=== PATIENT | male | born 1940 | race Asian ===

== ENCOUNTER 2019-10-04 15:35 | Inpatient (IN) | payer MEDICARE, MEDICAID ==
[~2019-10-04] VITALS: Ht 162.6 cm; Wt 58.8 kg
[~2019-10-04 15:35] MED LIST: HTN MED PO; TRAM50TA4 PO
[2019-10-04] MEDS ORDERED: IOVERSOL 320 MG/ML 100 ML VIAL ONE (15:52)
[2019-10-04] MEDS ORDERED: SODIUM CHLORIDE 0.9% 100 ML ONE (15:52)
[2019-10-04] MEDS ORDERED: SODIUM CHLORIDE 0.9% 500 ML IV ONE (16:00)
[2019-10-04] MEDS ORDERED: AZITHROMYCIN 500 MG/NS 250 ML IV ONE (16:15)
[2019-10-04] MEDS ORDERED: ACETAMINOPHEN 1000 MG/ISO-OSM 100 ML IV ONE (16:15)
[2019-10-04] MEDS ORDERED: PIPERACILLIN/TAZO 3.375 GM/D5W 50 ML IV ONE (16:15)
[2019-10-04] MEDS ORDERED: VANCOMYCIN HCL 1 GM/D5% WATER 200 ML IV ONE (16:15)
[2019-10-04] MEDS ORDERED: SODIUM CHLORIDE 0.9% 1,000 ML IV ONE (16:30)
[2019-10-04 16:43] LABS: BASOPHILS % (AUTO) 0.1 % (0.0-2.0); EOSINOPHILS % (AUTO) 0.1 % (1.0-6.0); HEMATOCRIT 29.1 % (41-53); HEMOGLOBIN 9.3 g/dL (13.5-17.5); LYMPHOCYTES # (AUTO) 0.5 K/uL (1.0-4.8); LYMPHOCYTES % (AUTO) 3.2 % (22.0-44.0); MEAN CORPUSCULAR HEMOGLOBIN 28.5 pg (26.0-34.0); MEAN CORPUSCULAR HGB CONC 31.9 G/dL (31.0-37.0); MEAN CORPUSCULAR VOLUME 89 fL (80-100); MONOCYTES # (AUTO) 1.2 K/uL (0.1-1.0); MONOCYTES % (AUTO) 7.5 % (2.0-9.0); NEUTROPHILS # (AUTO) 14.6 K/uL (1.8-7.7); PLATELET COUNT (AUTO) 479 K/uL (150-450); PROTHROMBIN TIME 10.2 SEC (9.4-11.6); RED BLOOD CELL COUNT(AUTO) 3.26 MIL/uL (4.50-5.90); RED CELL DISTRIBUTION WIDTH 16.8 % (11.5-14.5)
[2019-10-04 16:46] LABS: NEUTROPHILS % (AUTO) 89.1 % (40.0-70.0)
[2019-10-04 16:49] LABS: TROPONIN I 0.07 ng/mL (0.00-0.05)
[2019-10-04 16:57] LABS: LACTIC ACID 2.5 mmol/L (0.4-2.0)
[2019-10-04 17:04] LABS: CARBON DIOXIDE 26 mmol/L (22-29); CHLORIDE 105 mmol/L (98-107); POTASSIUM 3.6 mmol/L (3.5-5.1); SODIUM SERUM 147 mmol/L (136-145)
[2019-10-04 17:05] LABS: ALANINE AMINOTRANSFERASE 96 U/L (12-78); ALBUMIN 2.8 g/dL (3.4-5.0); ALKALINE PHOSPHATASE 101 U/L (46-116); ANION GAP 16 mmol/L (8-16); ASPARTATE AMINOTRANSFERASE 96 U/L (15-37); B-TYPE NATRIURETIC PEPTIDE 112 pg/mL (0-100); BILIRUBIN,TOTAL 1.9 mg/dL (0.1-1.0); CALCIUM, TOTAL 8.6 mg/dL (8.8-10.5); CREATINE KINASE, TOTAL ONLY 281 U/L (39-308); GLOMERULAR FILTR. RATE CALC 35 mL/min (>60); GLUCOSE,RANDOM 145 mg/dL (70-110); TOTAL PROTEIN, SERUM 7.6 g/dL (6.4-8.2); UREA NITROGEN, BLOOD 113 mg/dL (7-18)
[2019-10-04] MEDS ORDERED: ONDANSETRON HCL 4 MG/2 ML VIAL IVP PRN (18:15)
[2019-10-04] MEDS ORDERED: ASPIRIN 600 MG RECTAL SUPPOSITORY PR ONE (18:15)
[2019-10-04] MEDS ORDERED: *CLINICAL-LEVOFLOXACIN IVPB DOSING CLINICAL ONE (18:15)
[2019-10-04] MEDS ORDERED: ACETAMINOPHEN 325 MG TABLET PO PRN (18:15)
[2019-10-04] MEDS: ATORVASTATIN CALCIUM 20 MG TABLET PO SCH (18:15)
[2019-10-04] MEDS ORDERED: HydrALAZINE HCL 20 MG/ML VIAL IVP PRN (18:15)
[2019-10-04] MEDS ORDERED: SODIUM CHLORIDE 0.45% 1,000 ML IV ONE (18:15)
[2019-10-04] MEDS ORDERED: BISACODYL 10 MG RECTAL RECTAL SUPPOSITORY PR PRN (18:15)
[2019-10-04] MEDS: ASPIRIN 325 MG TABLET PO SCH (18:15)
[2019-10-04] MEDS: PANTOPRAZOLE SODIUM 40 MG/VIAL IVP SCH (19:05)
[2019-10-04 19:19] LABS: AMPHET/METH SCREEN,URINE NEGATIVE (NEGATIVE); BARBITURATE SCREEN, URINE NEGATIVE (NEGATIVE); BENZODIAZEPINES SCREEN,URINE NEGATIVE (NEGATIVE); CANNABINOID SCREEN,URINE NEGATIVE (NEGATIVE); COCAINE SCREEN,URINE NEGATIVE (NEGATIVE); METHADONE SCREEN, URINE NEGATIVE (NEGATIVE); OPIATE SCREEN,URINE NEGATIVE (NEGATIVE)
[2019-10-04 19:20] LABS: APPEARANCE,URINE CLEAR (CLEAR); BILIRUBIN,URINE NEGATIVE (NEGATIVE); GLUCOSE, URINE (UA) NEGATIVE (NEGATIVE); KETONES,URINE NEGATIVE (NEGATIVE); LEUKOCYTE ESTERASE ,URINE NEGATIVE (NEGATIVE); NITRATE,URINE NEGATIVE (NEGATIVE); OCCULT BLOOD,URINE TRACE (NEGATIVE); PROTEIN,URINE NEGATIVE (NEGATIVE)
[2019-10-04 19:29] LABS: PHENCYCLIDINE SCREEN,URINE NEGATIVE (NEGATIVE)
[2019-10-04 19:32] LABS: INFLUENZA TYPE A NEGATIVE FOR TYPE A (NEGATIVE); INFLUENZA TYPE B NEGATIVE FOR TYPE B (NEGATIVE)
[2019-10-04 19:33] LABS: BACTERIA,URINE Few /HPF (None Seen); RBC,URINE 0-2 /HPF (0-2); SQUAMOUS EPITHELIAL CELL,UR Few /LPF (None Seen); WBC,URINE 0-2 /HPF (0-5)
[2019-10-04] MEDS: HEPARIN SODIUM,PORCINE 5,000 UNITS/ML VIAL SQ SCH (21:35)
[2019-10-04 21:45] VITALS: BP 140/74
[2019-10-04] MEDS ORDERED: PNEUMOCOCCAL VACCINE POLYVALENT 0.5 ML VIAL [PPSV23] IM ONE (23:45)
[2019-10-05 00:07] VITALS: BP 145/82
[2019-10-05] MEDS: LEVOFLOXACIN 750 MG/D5% WATER 150 ML IV SCH (00:38)
[2019-10-05 04:08] VITALS: BP 128/76
[2019-10-05 07:20] VITALS: BP 127/78
[2019-10-05] MEDS: PANTOPRAZOLE SODIUM 40 MG/VIAL IVP SCH (08:14)
[2019-10-05] MEDS: HEPARIN SODIUM,PORCINE 5,000 UNITS/ML VIAL SQ SCH (08:15)
[2019-10-05] MEDS: ASPIRIN 325 MG TABLET PO SCH (08:18)
[2019-10-05] MEDS: ATORVASTATIN CALCIUM 20 MG TABLET PO SCH (08:19)
[2019-10-05 11:40] VITALS: BP 136/80
[2019-10-05 11:44] LABS: HEMOGLOBIN 7.5 g/dL (13.5-17.5); LYMPHOCYTES # (AUTO) 0.4 K/uL (1.0-4.8)
[2019-10-05 11:51] LABS: BASOPHILS % (AUTO) 0.2 % (0.0-2.0); EOSINOPHILS % (AUTO) 0.2 % (1.0-6.0); HEMATOCRIT 22.9 % (41-53); MEAN CORPUSCULAR HEMOGLOBIN 29.4 pg (26.0-34.0); MEAN CORPUSCULAR VOLUME 89 fL (80-100); MONOCYTES # (AUTO) 1.1 K/uL (0.1-1.0); MONOCYTES % (AUTO) 8.9 % (2.0-9.0); NEUTROPHILS # (AUTO) 11.2 K/uL (1.8-7.7); PLATELET COUNT (AUTO) 362 K/uL (150-450); RED BLOOD CELL COUNT(AUTO) 2.57 MIL/uL (4.50-5.90); RED CELL DISTRIBUTION WIDTH 17.1 % (11.5-14.5)
[2019-10-05 11:54] LABS: NEUTROPHILS % (AUTO) 87.7 % (40.0-70.0)
[2019-10-05 11:57] LABS: ANION GAP 14 mmol/L (8-16); CALCIUM, TOTAL 7.6 mg/dL (8.8-10.5); CARBON DIOXIDE 24 mmol/L (22-29); CHLORIDE 115 mmol/L (98-107); CHOL/HDL RATIO 5.5 (4.2-7.3); CHOLESTEROL 83 mg/dL (131-200); CREATININE 1.13 mg/dL (0.60-1.30); GLUCOSE,RANDOM 100 mg/dL (70-110); HDL CHOLESTEROL 15 mg/dL (40-60); LDL CHOL (CALC.) 46 mg/dL (0-130); SODIUM SERUM 153 mmol/L (136-145); TRIGLYCERIDES 111 mg/dL (15-150); UREA NITROGEN, BLOOD 54 mg/dL (7-18)
[2019-10-05 11:58] LABS: GLOMERULAR FILTR. RATE CALC > 60 mL/min (>60)
[2019-10-05 19:56] VITALS: BP 122/72
[2019-10-05] MEDS ORDERED: ACETAMINOPHEN 650 MG RECTAL SUPPOSITORY PR PRN (20:30)
[2019-10-05] MEDS: POTASSIUM CHL 10 MEQ/WATER 50 ML IV PRN (21:22)
[2019-10-05] MEDS ORDERED: SODIUM CHLORIDE 0.9% 1,000 ML ONE (21:24)
[2019-10-06] MEDS: HEPARIN SODIUM,PORCINE 5,000 UNITS/ML VIAL SQ SCH ×3 (00:02→21:00)
[2019-10-06] MEDS: POTASSIUM CHL 10 MEQ/WATER 50 ML IV PRN ×3 (00:02→04:36)
[2019-10-06 00:51] VITALS: BP 129/80
[2019-10-06 06:39] VITALS: BP 122/58
[2019-10-06 07:35] VITALS: BP 140/77
[2019-10-06 07:35] LABS: BASOPHILS % (AUTO) 0.2 % (0.0-2.0); EOSINOPHILS % (AUTO) 0.3 % (1.0-6.0); HEMATOCRIT 25.3 % (41-53); LYMPHOCYTES # (AUTO) 1.1 K/uL (1.0-4.8); LYMPHOCYTES % (AUTO) 10.3 % (22.0-44.0); MEAN CORPUSCULAR HEMOGLOBIN 28.9 pg (26.0-34.0); MEAN CORPUSCULAR HGB CONC 31.8 G/dL (31.0-37.0); MEAN CORPUSCULAR VOLUME 91 fL (80-100); MONOCYTES # (AUTO) 1.1 K/uL (0.1-1.0); MONOCYTES % (AUTO) 10.2 % (2.0-9.0); NEUTROPHILS # (AUTO) 8.3 K/uL (1.8-7.7); PLATELET COUNT (AUTO) 414 K/uL (150-450); RED BLOOD CELL COUNT(AUTO) 2.79 MIL/uL (4.50-5.90); RED CELL DISTRIBUTION WIDTH 17.1 % (11.5-14.5)
[2019-10-06 08:42] LABS: ANION GAP 11 mmol/L (8-16); CALCIUM, TOTAL 8.1 mg/dL (8.8-10.5); CARBON DIOXIDE 24 mmol/L (22-29); CHLORIDE 123 mmol/L (98-107); CREATININE 1.16 mg/dL (0.60-1.30); GLUCOSE,RANDOM 85 mg/dL (70-110); POTASSIUM 3.9 mmol/L (3.5-5.1); SODIUM SERUM 158 mmol/L (136-145); UREA NITROGEN, BLOOD 37 mg/dL (7-18)
[2019-10-06 08:46] LABS: GLOMERULAR FILTR. RATE CALC > 60 mL/min (>60)
[2019-10-06] MEDS: PANTOPRAZOLE SODIUM 40 MG/VIAL IVP SCH (08:48)
[2019-10-06] MEDS: ASPIRIN 325 MG TABLET PO SCH ×2 (08:48→08:50)
[2019-10-06] MEDS: ATORVASTATIN CALCIUM 20 MG TABLET PO SCH ×2 (08:48→08:50)
[2019-10-06 11:05] VITALS: BP 143/73
[2019-10-06] MEDS: DEXTROSE 5%-WATER 1,000 ML IV SCH ×2 (11:29→20:26)
[2019-10-06 16:46] VITALS: BP 143/84
[2019-10-06] MEDS: METOPROLOL TARTRATE 25 MG TABLET PO SCH (21:00)
[2019-10-06 21:30] VITALS: BP 121/69
[2019-10-06] MEDS: LEVOFLOXACIN 750 MG/D5% WATER 150 ML IV SCH (23:30)
[2019-10-07 00:38] VITALS: BP 135/81
[2019-10-07] MEDS: DEXTROSE 5%-WATER 1,000 ML IV SCH ×2 (05:14→10:27)
[2019-10-07 05:36] VITALS: BP 127/70
[2019-10-07 08:00] LABS: BASOPHILS % (AUTO) 0.1 % (0.0-2.0); EOSINOPHILS % (AUTO) 0.8 % (1.0-6.0); HEMATOCRIT 24.4 % (41-53); HEMOGLOBIN 7.5 g/dL (13.5-17.5); LYMPHOCYTES # (AUTO) 1.1 K/uL (1.0-4.8); LYMPHOCYTES % (AUTO) 11.1 % (22.0-44.0); MEAN CORPUSCULAR HEMOGLOBIN 28.1 pg (26.0-34.0); MEAN CORPUSCULAR HGB CONC 30.8 G/dL (31.0-37.0); MEAN CORPUSCULAR VOLUME 91 fL (80-100); MONOCYTES # (AUTO) 0.8 K/uL (0.1-1.0); MONOCYTES % (AUTO) 7.5 % (2.0-9.0); NEUTROPHILS # (AUTO) 8.3 K/uL (1.8-7.7); NEUTROPHILS % (AUTO) 80.5 % (40.0-70.0); PLATELET COUNT (AUTO) 420 K/uL (150-450); RED BLOOD CELL COUNT(AUTO) 2.67 MIL/uL (4.50-5.90); RED CELL DISTRIBUTION WIDTH 17.7 % (11.5-14.5)
[2019-10-07 08:04] VITALS: BP 118/84
[2019-10-07 08:20] LABS: ALANINE AMINOTRANSFERASE 41 U/L (12-78); ALBUMIN 1.9 g/dL (3.4-5.0); ALKALINE PHOSPHATASE 72 U/L (46-116); ANION GAP 11 mmol/L (8-16); ASPARTATE AMINOTRANSFERASE 36 U/L (15-37); BILIRUBIN,TOTAL 0.8 mg/dL (0.1-1.0); CALCIUM, TOTAL 7.2 mg/dL (8.8-10.5); CARBON DIOXIDE 25 mmol/L (22-29); CHLORIDE 119 mmol/L (98-107); CREATININE 1.06 mg/dL (0.60-1.30); GLUCOSE,RANDOM 123 mg/dL (70-110); POTASSIUM 3.5 mmol/L (3.5-5.1); SODIUM SERUM 155 mmol/L (136-145); TOTAL PROTEIN, SERUM 5.5 g/dL (6.4-8.2); UREA NITROGEN, BLOOD 25 mg/dL (7-18)
[2019-10-07 08:21] LABS: GLOMERULAR FILTR. RATE CALC > 60 mL/min (>60)
[2019-10-07] MEDS: ATORVASTATIN CALCIUM 20 MG TABLET PO SCH (09:00)
[2019-10-07] MEDS: HEPARIN SODIUM,PORCINE 5,000 UNITS/ML VIAL SQ SCH ×2 (09:00→20:53)
[2019-10-07] MEDS: METOPROLOL TARTRATE 25 MG TABLET PO SCH ×2 (09:00→21:00)
[2019-10-07] MEDS: ASPIRIN 325 MG TABLET PO SCH (09:00)
[2019-10-07] MEDS: PANTOPRAZOLE SODIUM 40 MG/VIAL IVP SCH (10:14)
[2019-10-07 11:13] VITALS: BP 132/72
[2019-10-07 15:31] VITALS: BP 124/66
[2019-10-07 20:31] VITALS: BP 128/82
[2019-10-08] MEDS: DEXTROSE 5%-WATER 1,000 ML IV SCH (00:27)
[2019-10-08 00:37] VITALS: BP 118/67
[2019-10-08 05:13] VITALS: BP 120/72
[2019-10-08] MEDS: ASPIRIN 325 MG TABLET PO SCH (09:00)
[2019-10-08] MEDS: METOPROLOL TARTRATE 25 MG TABLET PO SCH ×2 (09:00→21:00)
[2019-10-08] MEDS: ATORVASTATIN CALCIUM 20 MG TABLET PO SCH (09:00)
[2019-10-08 09:22] VITALS: BP 123/64
[2019-10-08] MEDS: HEPARIN SODIUM,PORCINE 5,000 UNITS/ML VIAL SQ SCH ×2 (09:34→21:33)
[2019-10-08] MEDS: PANTOPRAZOLE SODIUM 40 MG/VIAL IVP SCH (09:34)
[2019-10-08 11:48] VITALS: BP 117/70
[2019-10-08 15:30] VITALS: BP 116/64
[2019-10-08 16:08] LABS: HEMATOCRIT 24.5 % (41-53); HEMOGLOBIN 7.7 g/dL (13.5-17.5); MEAN CORPUSCULAR HEMOGLOBIN 28.1 pg (26.0-34.0); MEAN CORPUSCULAR HGB CONC 31.4 G/dL (31.0-37.0); MEAN CORPUSCULAR VOLUME 90 fL (80-100); PLATELET COUNT (AUTO) 397 K/uL (150-450); RED BLOOD CELL COUNT(AUTO) 2.74 MIL/uL (4.50-5.90); RED CELL DISTRIBUTION WIDTH 17.2 % (11.5-14.5)
[2019-10-08 16:24] LABS: ALANINE AMINOTRANSFERASE 34 U/L (12-78); ALBUMIN 1.9 g/dL (3.4-5.0); ALKALINE PHOSPHATASE 67 U/L (46-116); ANION GAP 11 mmol/L (8-16); ASPARTATE AMINOTRANSFERASE 33 U/L (15-37); BILIRUBIN,TOTAL 0.9 mg/dL (0.1-1.0); CARBON DIOXIDE 25 mmol/L (22-29); CHLORIDE 112 mmol/L (98-107); CREATININE 0.82 mg/dL (0.60-1.30); GLOMERULAR FILTR. RATE CALC > 60 mL/min (>60); GLUCOSE,RANDOM 108 mg/dL (70-110); POTASSIUM 3.3 mmol/L (3.5-5.1); SODIUM SERUM 148 mmol/L (136-145); TOTAL PROTEIN, SERUM 5.5 g/dL (6.4-8.2); UREA NITROGEN, BLOOD 19 mg/dL (7-18)
[2019-10-08 16:35] LABS: BAND NEUTROPHILS % (MANUAL) 4 % (0-5); EOSINOPHILS % (MANUAL) 1 % (1-6); LYMPHOCYTES % (MANUAL) 14 % (22-44); METAMYELOCYTES % 1 % (0-0); MONOCYTES % (MANUAL) 7 % (2-9); SEGMENTED NEUTROPHILS % 73 % (40-70)
[2019-10-08 16:36] LABS: PLATELET MORPHOLOGY COMMENT GIANT PLTS PRESENT
[2019-10-08] MEDS: POTASSIUM CHLORIDE 20 MEQ ER TABLET PO PRN (16:59)
[2019-10-08] MEDS: POTASSIUM CHL 10 MEQ/WATER 50 ML IV PRN ×3 (18:58→21:39)
[2019-10-08] MEDS ORDERED: SODIUM CHLORIDE 0.9% 250 ML IV ONE (20:36)
[2019-10-08 20:43] VITALS: BP 134/71
[2019-10-09 00:07] VITALS: BP 129/58
[2019-10-09] MEDS: LEVOFLOXACIN 750 MG/D5% WATER 150 ML IV SCH (01:10)
[2019-10-09 04:33] VITALS: BP 123/71
[2019-10-09 07:12] VITALS: BP 145/81
[2019-10-09] MEDS: PANTOPRAZOLE SODIUM 40 MG/VIAL IVP SCH (09:12)
[2019-10-09] MEDS: METOPROLOL TARTRATE 25 MG TABLET PO SCH ×2 (09:12→20:51)
[2019-10-09] MEDS: HEPARIN SODIUM,PORCINE 5,000 UNITS/ML VIAL SQ SCH ×2 (09:13→20:51)
[2019-10-09] MEDS: ATORVASTATIN CALCIUM 20 MG TABLET PO SCH (09:13)
[2019-10-09] MEDS: ASPIRIN 81 MG CHEWABLE TABLET PO SCH (09:15)
[2019-10-09 10:57] VITALS: BP 123/72
[2019-10-09 15:50] VITALS: BP 123/64
[2019-10-09 19:52] VITALS: BP 131/74
[2019-10-10] VITALS (8 sets, daily range): BP systolic 94–126; BP diastolic 56–69
[2019-10-10] MEDS: METOPROLOL TARTRATE 25 MG TABLET PO SCH ×2 (09:09→21:00)
[2019-10-10] MEDS: ASPIRIN 81 MG CHEWABLE TABLET PO SCH (09:09)
[2019-10-10] MEDS: ATORVASTATIN CALCIUM 20 MG TABLET PO SCH (09:09)
[2019-10-10] MEDS: PANTOPRAZOLE SODIUM 40 MG/VIAL IVP SCH (09:10)
[2019-10-10] MEDS: HEPARIN SODIUM,PORCINE 5,000 UNITS/ML VIAL SQ SCH ×2 (09:10→21:00)
[2019-10-10 20:45] LABS: % IRON SATURATION 7.7 % (30-44)
[2019-10-10] MEDS ORDERED: SODIUM CHLORIDE 0.9% 250 ML IV ONE (23:17)
[2019-10-10] MEDS: LEVOFLOXACIN 750 MG/D5% WATER 150 ML IV SCH (23:19)
[2019-10-11 04:21] VITALS: BP 123/66
[2019-10-11 07:35] VITALS: BP 125/65
[2019-10-11 08:01] LABS: GLUCOMETER DEV NAME(LOC) 5N.2; GLUCOSE,POINT OF CARE 99 MG/DL (70-110)
[2019-10-11 08:07] LABS: BASOPHILS % (AUTO) 0.3 % (0.0-2.0); EOSINOPHILS % (AUTO) 0.8 % (1.0-6.0); HEMATOCRIT 25.3 % (41-53); HEMOGLOBIN 8.2 g/dL (13.5-17.5); LYMPHOCYTES % (AUTO) 9.1 % (22.0-44.0); MEAN CORPUSCULAR HEMOGLOBIN 29.3 pg (26.0-34.0); MEAN CORPUSCULAR HGB CONC 32.5 G/dL (31.0-37.0); MEAN CORPUSCULAR VOLUME 90 fL (80-100); MONOCYTES # (AUTO) 0.8 K/uL (0.1-1.0); MONOCYTES % (AUTO) 7.3 % (2.0-9.0); NEUTROPHILS # (AUTO) 9.1 K/uL (1.8-7.7); NEUTROPHILS % (AUTO) 82.5 % (40.0-70.0); PLATELET COUNT (AUTO) 447 K/uL (150-450); RED CELL DISTRIBUTION WIDTH 17.2 % (11.5-14.5)
[2019-10-11 08:57] LABS: ALANINE AMINOTRANSFERASE 28 U/L (12-78); ALBUMIN 2.1 g/dL (3.4-5.0); ALKALINE PHOSPHATASE 84 U/L (46-116); ANION GAP 8 mmol/L (8-16); ASPARTATE AMINOTRANSFERASE 33 U/L (15-37); BILIRUBIN,TOTAL 0.8 mg/dL (0.1-1.0); CALCIUM, TOTAL 7.6 mg/dL (8.8-10.5); CARBON DIOXIDE 26 mmol/L (22-29); CHLORIDE 108 mmol/L (98-107); CREATININE 0.77 mg/dL (0.60-1.30); GLUCOSE,RANDOM 97 mg/dL (70-110); POTASSIUM 3.6 mmol/L (3.5-5.1); SODIUM SERUM 142 mmol/L (136-145); TOTAL PROTEIN, SERUM 6.1 g/dL (6.4-8.2); UREA NITROGEN, BLOOD 17 mg/dL (7-18)
[2019-10-11 09:00] LABS: GLOMERULAR FILTR. RATE CALC > 60 mL/min (>60)
[2019-10-11] MEDS: METOPROLOL TARTRATE 25 MG TABLET PO SCH ×2 (09:00→21:00)
[2019-10-11] MEDS: HEPARIN SODIUM,PORCINE 5,000 UNITS/ML VIAL SQ SCH ×2 (09:00→21:00)
[2019-10-11] MEDS: ATORVASTATIN CALCIUM 20 MG TABLET PO SCH (09:00)
[2019-10-11] MEDS: ASPIRIN 81 MG CHEWABLE TABLET PO SCH (09:00)
[2019-10-11] MEDS: PANTOPRAZOLE SODIUM 40 MG/VIAL IVP SCH (09:24)
[2019-10-11 11:30] VITALS: BP 120/64
[2019-10-11 13:30] LABS: GLUCOMETER DEV NAME(LOC) 5N.2; GLUCOSE,POINT OF CARE 83 MG/DL (70-110)
[2019-10-11] MEDS ORDERED: EPINEPHrine 1:10,000 [1 MG/10 ML] SYRINGE ONE (14:29)
[2019-10-11] MEDS ORDERED: SODIUM CHLORIDE 0.9% 1,000 ML ONE (14:30)
[2019-10-11] MEDS ORDERED: INSULIN LISPRO 100 UNITS/ML SQ PRN (14:45)
[2019-10-11] MEDS ORDERED: GLUCAGON,HUMAN RECOMBINANT 1 MG VIAL IM PRN (14:45)
[2019-10-11] MEDS ORDERED: DEXTROSE 50%-WATER 25 GM/50 ML SYG IVP PRN (14:45)
[2019-10-11] MEDS ORDERED: CeFAZolin 1 GM/DEXTROSE 50 ML IV ONE (15:00)
[2019-10-11 15:50] VITALS: BP 124/61
[2019-10-11 15:53] LABS: PROTHROMBIN TIME 10.6 SEC (9.4-11.6)
[2019-10-11] MEDS ORDERED: IOVERSOL 350 MG/ML 100 ML VIAL ONE (17:17)
[2019-10-11] MEDS ORDERED: SODIUM CHLORIDE 0.9% 100 ML ONE (17:17)
[2019-10-11] MEDS ORDERED: DIATRIZOATE MEGLU/SOD 660/100 MG/ML 120 ML BOTTLE ONE (17:18)
[2019-10-11] MEDS: PANTOPRAZOLE SODIUM 80 MG in SODIUM CHLORIDE 0.9% 100 ML IV SCH (17:51)
[2019-10-11 20:39] VITALS: BP 149/76
[2019-10-11 22:31] LABS: GLUCOMETER DEV NAME(LOC) 5N.2; GLUCOSE,POINT OF CARE 77 MG/DL (70-110)
[2019-10-11 23:55] LABS: GLUCOMETER DEV NAME(LOC) 5S.2A; GLUCOSE,POINT OF CARE 81 MG/DL (70-110)
[2019-10-12 00:17] VITALS: BP 137/85
[2019-10-12] MEDS: LEVOFLOXACIN 750 MG/D5% WATER 150 ML IV SCH ×2 (03:48→22:14)
[2019-10-12] MEDS: PANTOPRAZOLE SODIUM 80 MG in SODIUM CHLORIDE 0.9% 100 ML IV SCH ×2 (03:50→14:16)
[2019-10-12 04:23] VITALS: BP 137/83
[2019-10-12] MEDS ORDERED: PROPOFOL 1% 20 ML VIAL IVP ONE (06:10)
[2019-10-12 07:03] LABS: GLUCOMETER DEV NAME(LOC) 5S.2A; GLUCOSE,POINT OF CARE 75 MG/DL (70-110)
[2019-10-12 07:03] LABS: BASOPHILS % (AUTO) 0.3 % (0.0-2.0); EOSINOPHILS % (AUTO) 0.7 % (1.0-6.0); HEMATOCRIT 28.5 % (41-53); HEMOGLOBIN 8.9 g/dL (13.5-17.5); LYMPHOCYTES # (AUTO) 1.2 K/uL (1.0-4.8); LYMPHOCYTES % (AUTO) 9.8 % (22.0-44.0); MEAN CORPUSCULAR HEMOGLOBIN 28.6 pg (26.0-34.0); MEAN CORPUSCULAR HGB CONC 31.3 G/dL (31.0-37.0); MEAN CORPUSCULAR VOLUME 92 fL (80-100); MONOCYTES # (AUTO) 0.8 K/uL (0.1-1.0); MONOCYTES % (AUTO) 6.9 % (2.0-9.0); NEUTROPHILS % (AUTO) 82.3 % (40.0-70.0); PLATELET COUNT (AUTO) 454 K/uL (150-450); RED BLOOD CELL COUNT(AUTO) 3.11 MIL/uL (4.50-5.90); RED CELL DISTRIBUTION WIDTH 17.9 % (11.5-14.5)
[2019-10-12 07:22] VITALS: BP 135/73
[2019-10-12 07:57] LABS: ALANINE AMINOTRANSFERASE 34 U/L (12-78); ALBUMIN 2.2 g/dL (3.4-5.0); ALKALINE PHOSPHATASE 88 U/L (46-116); ANION GAP 13 mmol/L (8-16); ASPARTATE AMINOTRANSFERASE 44 U/L (15-37); CALCIUM, TOTAL 7.9 mg/dL (8.8-10.5); CARBON DIOXIDE 21 mmol/L (22-29); CHLORIDE 107 mmol/L (98-107); CREATININE 0.77 mg/dL (0.60-1.30); GLUCOSE,RANDOM 70 mg/dL (70-110); POTASSIUM 3.7 mmol/L (3.5-5.1); SODIUM SERUM 141 mmol/L (136-145); TOTAL PROTEIN, SERUM 6.5 g/dL (6.4-8.2); UREA NITROGEN, BLOOD 13 mg/dL (7-18)
[2019-10-12 08:00] LABS: GLOMERULAR FILTR. RATE CALC > 60 mL/min (>60)
[2019-10-12] MEDS: ASPIRIN 81 MG CHEWABLE TABLET PO SCH (09:00)
[2019-10-12] MEDS: ATORVASTATIN CALCIUM 20 MG TABLET PO SCH (09:00)
[2019-10-12] MEDS: HEPARIN SODIUM,PORCINE 5,000 UNITS/ML VIAL SQ SCH ×2 (09:00→20:52)
[2019-10-12] MEDS: METOPROLOL TARTRATE 25 MG TABLET PO SCH ×2 (09:00→20:51)
[2019-10-12] MEDS ORDERED: LIDOCAINE/PF 1% 5 ML VIAL ONE (09:26)
[2019-10-12 12:00] VITALS: BP 153/78
[2019-10-12] MEDS ORDERED: DEXTROSE 5%-0.45% SODIUM CHL 1,000 ML IV ONE (14:15)
[2019-10-12 14:55] VITALS: BP 158/87
[2019-10-12] MEDS ORDERED: HYDROCODONE/ACETAMINOPHEN 5-325 MG TABLET PO PRN (16:15)
[2019-10-12] MEDS ORDERED: METOCLOPRAMIDE HCL 5 MG/ML 2 ML VIAL IVP PRN (16:15)
[2019-10-12] MEDS ORDERED: PIPERACILLIN/TAZO 3.375 GM/D5W 50 ML IV SCH (17:00)
[2019-10-12 19:59] VITALS: BP 147/73
[2019-10-13 00:03] VITALS: BP 117/65
[2019-10-13] MEDS: PANTOPRAZOLE SODIUM 80 MG in SODIUM CHLORIDE 0.9% 100 ML IV SCH ×2 (00:16→10:43)
[2019-10-13 04:42] VITALS: BP 145/83
[2019-10-13 06:10] LABS: GLUCOMETER DEV NAME(LOC) 5N.2; GLUCOSE,POINT OF CARE 110 MG/DL (70-110)
[2019-10-13] MEDS ORDERED: MIDAZOLAM HCL 2 MG/2 ML VIAL IVP ONE (06:37)
[2019-10-13] MEDS ORDERED: PROPOFOL 1% 20 ML VIAL IVP ONE (06:37)
[2019-10-13] MEDS ORDERED: LIDOCAINE/PF 2% 5 ML VIAL IM ONE (06:37)
[2019-10-13 07:25] LABS: BASOPHILS % (AUTO) 0.3 % (0.0-2.0); EOSINOPHILS % (AUTO) 0.4 % (1.0-6.0); HEMOGLOBIN 7.6 g/dL (13.5-17.5); LYMPHOCYTES # (AUTO) 0.8 K/uL (1.0-4.8); LYMPHOCYTES % (AUTO) 7.2 % (22.0-44.0); MEAN CORPUSCULAR HEMOGLOBIN 28.1 pg (26.0-34.0); MEAN CORPUSCULAR HGB CONC 31.7 G/dL (31.0-37.0); MEAN CORPUSCULAR VOLUME 89 fL (80-100); MONOCYTES # (AUTO) 0.9 K/uL (0.1-1.0); MONOCYTES % (AUTO) 8.2 % (2.0-9.0); NEUTROPHILS # (AUTO) 9.5 K/uL (1.8-7.7); NEUTROPHILS % (AUTO) 83.9 % (40.0-70.0); PLATELET COUNT (AUTO) 428 K/uL (150-450); RED CELL DISTRIBUTION WIDTH 17.5 % (11.5-14.5)
[2019-10-13 07:38] VITALS: BP 141/69
[2019-10-13 07:40] LABS: ALANINE AMINOTRANSFERASE 22 U/L (12-78); ALBUMIN 1.8 g/dL (3.4-5.0); ALKALINE PHOSPHATASE 70 U/L (46-116); ANION GAP 14 mmol/L (8-16); ASPARTATE AMINOTRANSFERASE 33 U/L (15-37); BILIRUBIN,TOTAL 1.1 mg/dL (0.1-1.0); CALCIUM, TOTAL 7.4 mg/dL (8.8-10.5); CARBON DIOXIDE 21 mmol/L (22-29); CHLORIDE 104 mmol/L (98-107); GLUCOSE,RANDOM 100 mg/dL (70-110); POTASSIUM 3.2 mmol/L (3.5-5.1); SODIUM SERUM 139 mmol/L (136-145); TOTAL PROTEIN, SERUM 5.8 g/dL (6.4-8.2); UREA NITROGEN, BLOOD 12 mg/dL (7-18)
[2019-10-13 07:54] LABS: GLOMERULAR FILTR. RATE CALC > 60 mL/min (>60)
[2019-10-13] MEDS: ATORVASTATIN CALCIUM 20 MG TABLET PO SCH (08:12)
[2019-10-13] MEDS: HEPARIN SODIUM,PORCINE 5,000 UNITS/ML VIAL SQ SCH ×2 (08:13→21:25)
[2019-10-13] MEDS: METOPROLOL TARTRATE 25 MG TABLET PO SCH ×2 (08:13→21:25)
[2019-10-13] MEDS: ASPIRIN 81 MG CHEWABLE TABLET PO SCH (08:13)
[2019-10-13] MEDS: POTASSIUM CHLORIDE 20 MEQ ER TABLET PO PRN (08:14)
[2019-10-13 11:21] LABS: GLUCOMETER DEV NAME(LOC) 5S.2A; GLUCOSE,POINT OF CARE 65 MG/DL (70-110)
[2019-10-13 11:21] LABS: GLUCOMETER DEV NAME(LOC) 5S.2A; GLUCOSE,POINT OF CARE 163 MG/DL (70-110)
[2019-10-13 11:21] LABS: GLUCOMETER DEV NAME(LOC) 5S.2A; GLUCOSE,POINT OF CARE 81 MG/DL (70-110)
[2019-10-13 11:21] LABS: GLUCOMETER DEV NAME(LOC) 5S.2A; GLUCOSE,POINT OF CARE 83 MG/DL (70-110)
[2019-10-13 11:22] VITALS: BP 117/69
[2019-10-13 12:31] LABS: GLUCOMETER DEV NAME(LOC) 5N.2; GLUCOSE,POINT OF CARE 88 MG/DL (70-110)
[2019-10-13] MEDS ORDERED: DEXTROSE 5%-0.45% SODIUM CHL 1,000 ML IV SCH (13:45)
[2019-10-13 15:39] VITALS: BP 141/71
[2019-10-13 17:42] LABS: GLUCOMETER DEV NAME(LOC) 5N.2; GLUCOSE,POINT OF CARE 94 MG/DL (70-110)
[2019-10-13 19:38] VITALS: BP 127/81
[2019-10-14 07:03] LABS: GLUCOMETER DEV NAME(LOC) 5S.2A; GLUCOSE,POINT OF CARE 93 MG/DL (70-110)
== END 2019-10-13 22:30 | DRG 871 ==
LOC: EMS 15:35 → 5N 18:15 → 5S 10-09 18:30
PROVIDERS: ADMIT Internal Medicine; ATTEND Internal Medicine
PROC: 0DH63UZ Insertion of Feeding Device into Stomach, Percutaneous Approach (ICD-10-PCS; principal; 2019-10-11 15:30)
PROC: 0W9G30Z Drainage of Peritoneal Cavity with Drainage Device, Percutaneous Approach (ICD-10-PCS; 2019-10-12)
DX: A41.9 Sepsis, unspecified organism (principal); K65.1 Peritoneal abscess; I63.9 Cerebral infarction, unspecified; E43 Unspecified severe protein-calorie malnutrition; N17.9 Acute kidney failure, unspecified; E87.0 Hyperosmolality and hypernatremia; G81.90 Hemiplegia, unspecified affecting unspecified side; I10 Essential (primary) hypertension; D32.9 Benign neoplasm of meninges, unspecified; D64.9 Anemia, unspecified; I69.320 Aphasia following cerebral infarction; Z87.11 Personal history of peptic ulcer disease; D73.3 Abscess of spleen; R13.10 Dysphagia, unspecified; R29.700 NIHSS score 0; Z68.22 Body mass index [BMI] 22.0-22.9, adult; K26.9 Duodenal ulcer, unspecified as acute or chronic, without hemorrhage or perforation; I48.91 Unspecified atrial fibrillation; Z20.828 Contact with and (suspected) exposure to other viral communicable diseases; Z90.49 Acquired absence of other specified parts of digestive tract
CPT/HCPCS: 36245; 51702; 70496; 70551; 74018; 74177; 75989; 76000; 82728; 83540; 83550; 83605; 84132; 86677; 87040; 87070; 87205; 87635; 87804; 92507; 92526; 92610; 93005; 93306; 93880; 97112; 97162; 97530; 99291; C9113; G0480; J0131; J0171; J0456; J0690; J1644; J1956; J2001; J2250; J2543; J2704; J3370; J3480; J3490; J7030; J7040; J7050; J7060

== ENCOUNTER 2019-11-11 02:09 | Inpatient (IN) | payer MEDICARE, MEDICAID ==
[~2019-11-11] VITALS: Ht 167.6 cm; Wt 58.0 kg
[2019-11-11] MEDS ORDERED: ATOR20TA86 PEG (03:03)
[2019-11-11] MEDS ORDERED: FERSL PO (03:03)
[2019-11-11] MEDS ORDERED: SUCR1TAB28 PEG (03:03)
[2019-11-11] MEDS ORDERED: BACL10TA PEG (03:03)
[2019-11-11] MEDS ORDERED: PANT-31 PEG (03:03)
[2019-11-11] MEDS ORDERED: AMLO2.5T4 PEG (03:03)
[2019-11-11] MEDS ORDERED: HEPA500018 SQ (03:03)
[2019-11-11] MEDS ORDERED: METO5TAB95 PEG (03:03)
[2019-11-11] MEDS ORDERED: ASPI-728 PEG (03:03)
[2019-11-11 03:14] LABS: EOSINOPHILS % (AUTO) 2.5 % (1.0-6.0); HEMATOCRIT 32.3 % (41-53); HEMOGLOBIN 10.1 g/dL (13.5-17.5); LYMPHOCYTES # (AUTO) 2.5 K/uL (1.0-4.8); LYMPHOCYTES % (AUTO) 26.1 % (22.0-44.0); MEAN CORPUSCULAR HEMOGLOBIN 24.8 pg (26.0-34.0); MEAN CORPUSCULAR HGB CONC 31.3 G/dL (31.0-37.0); MEAN CORPUSCULAR VOLUME 79 fL (80-100); MONOCYTES # (AUTO) 0.8 K/uL (0.1-1.0); NEUTROPHILS # (AUTO) 5.9 K/uL (1.8-7.7); NEUTROPHILS % (AUTO) 62.4 % (40.0-70.0); PLATELET COUNT (AUTO) 528 K/uL (150-450); RED BLOOD CELL COUNT(AUTO) 4.09 MIL/uL (4.50-5.90); RED CELL DISTRIBUTION WIDTH 19.3 % (11.5-14.5)
[2019-11-11 03:24] LABS: ANION GAP 11 mmol/L (8-16); CALCIUM, TOTAL 8.8 mg/dL (8.8-10.5); CARBON DIOXIDE 26 mmol/L (22-29); CHLORIDE 102 mmol/L (98-107); CREATININE 0.45 mg/dL (0.60-1.30); GLUCOSE,RANDOM 122 mg/dL (70-110); POTASSIUM 3.7 mmol/L (3.5-5.1); SODIUM SERUM 139 mmol/L (136-145); UREA NITROGEN, BLOOD 24 mg/dL (7-18)
[2019-11-11 03:26] LABS: INR 1.1 (0.9-1.1); PROTHROMBIN TIME 11.2 SEC (9.4-11.6)
[2019-11-11 03:29] LABS: ALANINE AMINOTRANSFERASE 57 U/L (12-78); ALBUMIN 3.2 g/dL (3.4-5.0); ALKALINE PHOSPHATASE 182 U/L (46-116); ASPARTATE AMINOTRANSFERASE 27 U/L (15-37); BILIRUBIN,TOTAL 0.7 mg/dL (0.1-1.0); TOTAL PROTEIN, SERUM 7.7 g/dL (6.4-8.2)
[2019-11-11 03:44] LABS: GLOMERULAR FILTR. RATE CALC > 60 mL/min (>60)
[2019-11-11] MEDS ORDERED: ONDANSETRON HCL 4 MG/2 ML VIAL IVP PRN (04:00)
[2019-11-11] MEDS ORDERED: 0.9% SODIUM CHLORIDE 10 ML SYRINGE IVP PRN (04:00)
[2019-11-11] MEDS ORDERED: SODIUM CHLORIDE 0.9% 1,000 ML ONE (11:46)
[2019-11-11] MEDS: PANTOPRAZOLE SODIUM 40 MG/VIAL IVP SCH ×2 (13:45→20:02)
[2019-11-11] MEDS ORDERED: AMPICILLIN SODIUM/SULBACTAM NA 1.5 GM in SODIUM CHLORIDE 0.9% 50 ML IV ONE (14:00)
[2019-11-11 16:36] VITALS: BP 148/102
[2019-11-11 20:45] VITALS: BP 125/80
[2019-11-12 00:15] VITALS: BP 135/79
[2019-11-12 05:30] VITALS: BP 137/88
[2019-11-12] MEDS ORDERED: PROPOFOL 1% 20 ML VIAL IVP ONE (05:56)
[2019-11-12 07:40] VITALS: BP 142/83
[2019-11-12] MEDS: PANTOPRAZOLE SODIUM 40 MG/VIAL IVP SCH (08:03)
[2019-11-12 12:19] VITALS: BP 138/82
[2019-11-12 15:17] VITALS: BP 129/84
[2019-11-12 19:45] VITALS: BP 129/80
[2019-11-13] MEDS ORDERED: METO5TAB95 PO (19:29)
[2019-11-13] MEDS ORDERED: DOCU-275 PO (19:29)
== END 2019-11-12 20:30 | DRG 394 ==
LOC: EMS 02:09 → 6S 12:58
PROVIDERS: ADMIT Hospitalist; ATTEND Hospitalist
PROC: 0DB78ZX Excision of Stomach, Pylorus, Via Natural or Artificial Opening Endoscopic, Diagnostic (ICD-10-PCS; 2019-11-11)
PROC: 0DH63UZ Insertion of Feeding Device into Stomach, Percutaneous Approach (ICD-10-PCS; principal; 2019-11-11 13:00)
DX: K94.23 Gastrostomy malfunction (principal); I69.951 Hemiplegia and hemiparesis following unspecified cerebrovascular disease affecting right dominant side; K31.1 Adult hypertrophic pyloric stenosis; D50.9 Iron deficiency anemia, unspecified; E78.5 Hyperlipidemia, unspecified; I10 Essential (primary) hypertension; I48.91 Unspecified atrial fibrillation; K29.70 Gastritis, unspecified, without bleeding; R13.10 Dysphagia, unspecified; Z90.49 Acquired absence of other specified parts of digestive tract; Z79.891 Long term (current) use of opiate analgesic; Z79.2 Long term (current) use of antibiotics; Z79.899 Other long term (current) drug therapy; Z79.82 Long term (current) use of aspirin; Z79.1 Long term (current) use of non-steroidal anti-inflammatories (NSAID); Z79.02 Long term (current) use of antithrombotics/antiplatelets
CPT/HCPCS: 86850; 86900; 86901; 88305; 88312; 88313; 93005; C9113; J0295; J2704; J7030; J7050

== ENCOUNTER 2019-11-13 18:57 | Inpatient (IN) | payer MEDICARE, MEDICAID ==
[~2019-11-13] VITALS: Ht 160 cm; Wt 53.0 kg
[~2019-11-13 18:57] MED LIST changes: +AMLO2.5T4 PEG; +ASPI-728 PEG; +ATOR20TA86 PEG; +BACL10TA PEG; +FERSL PO; +HEPA500018 SQ; -HTN MED PO; +METO5TAB95 PEG; +PANT-31 PEG; +SUCR1TAB28 PEG; -TRAM50TA4 PO
[2019-11-13] MEDS ORDERED: DOCU-275 PO (19:29)
[2019-11-13] MEDS ORDERED: METO5TAB95 PO (19:29)
[2019-11-13] MEDS ORDERED: ONDANSETRON HCL 4 MG/2 ML VIAL IVP PRN (20:00)
[2019-11-13] MEDS ORDERED: 0.9% SODIUM CHLORIDE 10 ML SYRINGE IVP PRN (20:00)
[2019-11-13] MEDS ORDERED: MORPHINE SULFATE 2 MG/ML SYRINGE IVP PRN (20:00)
[2019-11-13 20:22] LABS: BASOPHILS % (AUTO) 1.1 % (0.0-2.0); EOSINOPHILS % (AUTO) 3.5 % (1.0-6.0); HEMATOCRIT 32.9 % (41-53); HEMOGLOBIN 10.2 g/dL (13.5-17.5); LYMPHOCYTES # (AUTO) 1.5 K/uL (1.0-4.8); LYMPHOCYTES % (AUTO) 23.2 % (22.0-44.0); MEAN CORPUSCULAR HEMOGLOBIN 24.6 pg (26.0-34.0); MEAN CORPUSCULAR HGB CONC 30.8 G/dL (31.0-37.0); MEAN CORPUSCULAR VOLUME 80 fL (80-100); MONOCYTES # (AUTO) 0.6 K/uL (0.1-1.0); NEUTROPHILS # (AUTO) 4.1 K/uL (1.8-7.7); NEUTROPHILS % (AUTO) 63.2 % (40.0-70.0); PLATELET COUNT (AUTO) 450 K/uL (150-450); RED BLOOD CELL COUNT(AUTO) 4.13 MIL/uL (4.50-5.90); RED CELL DISTRIBUTION WIDTH 19.8 % (11.5-14.5)
[2019-11-13 20:34] LABS: ANION GAP 11 mmol/L (8-16); CALCIUM, TOTAL 8.9 mg/dL (8.8-10.5); CARBON DIOXIDE 25 mmol/L (22-29); CHLORIDE 102 mmol/L (98-107); CREATININE 0.52 mg/dL (0.60-1.30); GLUCOSE,RANDOM 98 mg/dL (70-110); POTASSIUM 3.5 mmol/L (3.5-5.1); SODIUM SERUM 138 mmol/L (136-145); UREA NITROGEN, BLOOD 19 mg/dL (7-18)
[2019-11-13 20:36] LABS: GLOMERULAR FILTR. RATE CALC > 60 mL/min (>60); INR 1.1 (0.9-1.1); PROTHROMBIN TIME 10.8 SEC (9.4-11.6)
[2019-11-13 20:40] LABS: ALANINE AMINOTRANSFERASE 48 U/L (12-78); ALBUMIN 3.4 g/dL (3.4-5.0); ALKALINE PHOSPHATASE 182 U/L (46-116); ASPARTATE AMINOTRANSFERASE 25 U/L (15-37); BILIRUBIN,TOTAL 0.8 mg/dL (0.1-1.0)
[2019-11-13 22:02] VITALS: BP 137/84
[2019-11-14 04:40] VITALS: BP 146/93
[2019-11-14 08:11] VITALS: BP 125/85
[2019-11-14] MEDS: DEXTROSE 5%-0.45% SODIUM CHL 1,000 ML IV SCH ×2 (09:39→23:27)
[2019-11-14] MEDS ORDERED: MORPHINE SULFATE 2 MG/ML SYRINGE IVP PRN (11:15)
[2019-11-14] MEDS ORDERED: BISACODYL 10 MG RECTAL RECTAL SUPPOSITORY PR PRN (11:15)
[2019-11-14] MEDS ORDERED: ONDANSETRON HCL 4 MG/2 ML VIAL IVP PRN (11:15)
[2019-11-14] MEDS ORDERED: LABETALOL HCL 5 MG/ML 20 ML VIAL IVP PRN (11:15)
[2019-11-14 11:21] VITALS: BP 121/80
[2019-11-14 15:24] VITALS: BP 146/91
[2019-11-14] MEDS: HEPARIN SODIUM,PORCINE 5,000 UNITS/ML VIAL SQ SCH ×2 (17:17→23:22)
[2019-11-14 20:02] VITALS: BP 140/85
[2019-11-15] VITALS: BP 150/82
[2019-11-15 04:13] VITALS: BP 154/83
[2019-11-15] MEDS ORDERED: CeFAZolin 1 GM/DEXTROSE 50 ML IV ONE ×2 (08:00→14:08)
[2019-11-15] MEDS: HEPARIN SODIUM,PORCINE 5,000 UNITS/ML VIAL SQ SCH ×2 (08:00→15:51)
[2019-11-15 08:06] VITALS: BP 149/85
[2019-11-15 11:32] VITALS: BP 149/85
[2019-11-15 12:00] VITALS: BP 152/85
[2019-11-15] MEDS: DEXTROSE 5%-0.45% SODIUM CHL 1,000 ML IV SCH (13:11)
[2019-11-15] MEDS ORDERED: SODIUM CHLORIDE 0.9% 1,000 ML ONE (14:08)
[2019-11-15] MEDS ORDERED: SODIUM CHLORIDE 0.9% 1,000 ML IV ONE (14:30)
[2019-11-15] MEDS ORDERED: MIDAZOLAM HCL 5 MG/ML VIAL ONE (16:10)
[2019-11-15] MEDS ORDERED: FentaNYL CITRATE-PF 100 MCG/2 ML VIAL ONE (16:10)
[2019-11-15 19:50] VITALS: BP 134/89
[2019-11-16] MEDS: HEPARIN SODIUM,PORCINE 5,000 UNITS/ML VIAL SQ SCH ×2 (00:01→07:56)
[2019-11-16 00:53] VITALS: BP 149/97
[2019-11-16] MEDS: DEXTROSE 5%-0.45% SODIUM CHL 1,000 ML IV SCH (03:36)
[2019-11-16 04:40] VITALS: BP 135/86
[2019-11-16 07:41] VITALS: BP 143/91
[2019-11-16 11:13] VITALS: BP 143/91
== END 2019-11-16 14:30 | DRG 394 ==
LOC: EMS 18:57 → 6S 19:55 → 4E 11-14 13:27
PROVIDERS: ADMIT Hospitalist; ATTEND Hospitalist
PROC: 0DH63UZ Insertion of Feeding Device into Stomach, Percutaneous Approach (ICD-10-PCS; principal; 2019-11-15 16:00)
DX: K94.23 Gastrostomy malfunction (principal); G81.91 Hemiplegia, unspecified affecting right dominant side; Y83.8 Other surgical procedures as the cause of abnormal reaction of the patient, or of later complication, without mention of misadventure at the time of the procedure; Y73.8 Miscellaneous gastroenterology and urology devices associated with adverse incidents, not elsewhere classified; I10 Essential (primary) hypertension; K21.9 Gastro-esophageal reflux disease without esophagitis; K29.70 Gastritis, unspecified, without bleeding; R13.10 Dysphagia, unspecified; E78.5 Hyperlipidemia, unspecified; I48.91 Unspecified atrial fibrillation; Z20.828 Contact with and (suspected) exposure to other viral communicable diseases; Z86.73 Personal history of transient ischemic attack (TIA), and cerebral infarction without residual deficits
CPT/HCPCS: 87081; G0378; J0690; J1644; J2250; J2270; J3010; J3490; J7030

== ENCOUNTER 2019-12-12 21:32 | Emergency (ER) | payer MEDICAID, MEDICARE ==
[~2019-12-12] VITALS: Ht 170.2 cm; Wt 47.7 kg
[~2019-12-12 21:32] MED LIST changes: -AMLO2.5T4 PEG; +AMLO2.5T96 PEG; +DOCU-275 PO; -METO5TAB95 PEG; +METO5TAB95 PO
[2019-12-13 02:35] LABS: BASOPHILS % (AUTO) 1.1 % (0.0-2.0); EOSINOPHILS % (AUTO) 2.8 % (1.0-6.0); HEMATOCRIT 37.2 % (41-53); HEMOGLOBIN 11.6 g/dL (13.5-17.5); LYMPHOCYTES # (AUTO) 2.1 K/uL (1.0-4.8); LYMPHOCYTES % (AUTO) 30.6 % (22.0-44.0); MEAN CORPUSCULAR HEMOGLOBIN 24.6 pg (26.0-34.0); MEAN CORPUSCULAR HGB CONC 31.1 G/dL (31.0-37.0); MEAN CORPUSCULAR VOLUME 79 fL (80-100); MONOCYTES # (AUTO) 0.5 K/uL (0.1-1.0); MONOCYTES % (AUTO) 7.3 % (2.0-9.0); NEUTROPHILS % (AUTO) 58.2 % (40.0-70.0); PLATELET COUNT (AUTO) 391 K/uL (150-450); RED BLOOD CELL COUNT(AUTO) 4.71 MIL/uL (4.50-5.90); RED CELL DISTRIBUTION WIDTH 20.9 % (11.5-14.5)
[2019-12-13 02:40] LABS: ANION GAP 10 mmol/L (8-16); CALCIUM, TOTAL 8.9 mg/dL (8.8-10.5); CARBON DIOXIDE 27 mmol/L (22-29); CHLORIDE 104 mmol/L (98-107); CREATININE 0.67 mg/dL (0.60-1.30); GLOMERULAR FILTR. RATE CALC > 60 mL/min (>60); GLUCOSE,RANDOM 109 mg/dL (70-110); SODIUM SERUM 141 mmol/L (136-145); UREA NITROGEN, BLOOD 12 mg/dL (7-18)
[2019-12-13 02:42] LABS: ALANINE AMINOTRANSFERASE 40 U/L (12-78); ALBUMIN 3.3 g/dL (3.4-5.0); ALKALINE PHOSPHATASE 125 U/L (46-116); ASPARTATE AMINOTRANSFERASE 27 U/L (15-37); BILIRUBIN,TOTAL 0.7 mg/dL (0.1-1.0); TOTAL PROTEIN, SERUM 7.6 g/dL (6.4-8.2)
[2019-12-13] MEDS ORDERED: POTASSIUM CHLORIDE 10% 40 MEQ/30 ML LIQUID UDCUP GT ONE (04:00)
[2019-12-13 04:54] LABS: APPEARANCE,URINE CLEAR (CLEAR); BILIRUBIN,URINE NEGATIVE (NEGATIVE); GLUCOSE, URINE (UA) NEGATIVE (NEGATIVE); KETONES,URINE NEGATIVE (NEGATIVE); LEUKOCYTE ESTERASE ,URINE NEGATIVE (NEGATIVE); NITRATE,URINE NEGATIVE (NEGATIVE); OCCULT BLOOD,URINE NEGATIVE (NEGATIVE); PROTEIN,URINE NEGATIVE (NEGATIVE); UROBILINOGEN,URINE 0.2 mg/dL (<=1.0)
[2019-12-13 04:58] LABS: RBC,URINE None Seen /HPF (0-2); WBC,URINE None Seen /HPF (0-5)
[2019-12-13 04:59] LABS: BACTERIA,URINE None Seen /HPF (None Seen); SQUAMOUS EPITHELIAL CELL,UR Rare /LPF (None Seen)
[2019-12-13] MEDS ORDERED: DIATRIZOATE MEGLU/SOD 660/100 MG/ML 120 ML BOTTLE PO ONE (06:45)
[2019-12-13 10:11] VITALS: BP 150/95
== END 2019-12-13 10:13 | disposition home or self-care (01) ==
LOC: EMS 21:32
DX: K94.23 Gastrostomy malfunction (principal); E87.6 Hypokalemia; I48.91 Unspecified atrial fibrillation; I10 Essential (primary) hypertension; Z90.49 Acquired absence of other specified parts of digestive tract
CPT/HCPCS: 43762; 74018; 36415-L1; 36415-TC

== ENCOUNTER 2021-02-01 10:12 | Emergency (ER) | payer MEDICARE, OTHER ==
[~2021-02-01] VITALS: Ht 165.1 cm; Wt 56.5 kg
[~2021-02-01 10:12] MED LIST changes: +ASPI-1450 PEG; -ASPI-728 PEG; +DOCU-270 PO; -DOCU-275 PO
[2021-02-01] MEDS ORDERED: LIDOCAINE 2% 5 ML JELLY ONE (15:28)
[2021-02-01] MEDS ORDERED: DIATRIZOATE MEGLU/SOD 660/100 MG/ML 120 ML BOTTLE ONE (15:32)
[2021-02-01 17:00] VITALS: BP 150/101
== END 2021-02-01 18:41 | disposition home or self-care (01) ==
LOC: EMS 10:12
DX: K94.23 Gastrostomy malfunction (principal); I48.91 Unspecified atrial fibrillation; I10 Essential (primary) hypertension; Z86.73 Personal history of transient ischemic attack (TIA), and cerebral infarction without residual deficits
CPT/HCPCS: 49450; 99284; Q9963; 76000